=== PATIENT | male | born 1995 | race Caucasian/White ===

== ENCOUNTER 2018-11-16 16:09 | Emergency (ER) | payer OTHER ==
[~2018-11-16] VITALS: Ht 177.8 cm; Wt 90.7 kg
[2018-11-16 16:09] VITALS: BP 144/83
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
== END 2018-11-16 16:30 | disposition home or self-care (01) ==
LOC: ER 16:09
DX: M54.6 Pain in thoracic spine (principal); R53.1 Weakness; R53.83 Other fatigue; Z91.018 Allergy to other foods; W10.8XXA Fall (on) (from) other stairs and steps, initial encounter; Y93.89 Activity, other specified; Y92.89 Other specified places as the place of occurrence of the external cause; Y99.8 Other external cause status
CPT/HCPCS: 82947; 99283

== ENCOUNTER 2018-11-30 19:23 | Inpatient (IN) | payer OTHER ==
[~2018-11-30] VITALS: Ht 182.9 cm; Wt 86.3 kg
[2018-11-30] MEDS ORDERED: IV RINGERS SOLUTION,LACTATED 1,000 ML IV SCH (19:33)
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
[2018-11-30] MEDS ORDERED: MVI, ADULT NO.4 WITH VIT K 10 ML, FOLIC ACID SYRINGE for ER 1 MG, THIAMINE INJ 100 MG i... IV ONE ×4 (20:00)
[2018-11-30 20:48] LABS: BASO % 1 % (0-3); EOS # 0.1 x10^3/uL (0.0-0.7); EOS % 2 % (0-3); HEMATOCRIT 45.8 % (39.0-53.0); LYMPH # 2.9 x10^3/uL (1.0-4.8); LYMPH % 46 % (24-48); MEAN CORPUSCULAR HEMOGLOBIN 31 pg (25-35); MEAN CORPUSCULAR HGB CONC 35 g/dL (31-37); MEAN CORPUSCULAR VOLUME 90 fL (79-100); MONO # 0.8 x10^3/uL (0.0-1.1); MONO % 13 % (0-9); NEUT # 2.4 x10^3uL (1.8-7.7); NEUT % 39 % (31-73); PLATELET COUNT 190 x10^3/uL (140-400); RED BLOOD COUNT 5.11 x10^6/uL (4.30-5.70); RED CELL DISTRIBUTION WIDTH 12.9 % (11.5-14.5); WHITE BLOOD COUNT 6.2 x10^3/uL (4.0-11.0)
[2018-11-30 20:51] LABS: ETHANOL < 10 mg/dL (0-10); SALIC 1.8 mg/dL (2.8-20.0)
[2018-11-30 20:53] LABS: ACETAMIN < 2.0 mcg/mL (10-30)
[2018-11-30 21:00] LABS: ALBUMIN 4.2 g/dL (3.4-5.0); CALCIUM 9.6 mg/dL (8.5-10.1); CREATININE 0.9 mg/dL (0.7-1.3); DIRECT BILIRUBIN 0.2 mg/dL (0.0-0.2); GFR 106.5; MAGNESIUM 2.1 mg/dL (1.8-2.4); TOTAL BILIRUBIN 0.8 mg/dL (0.2-1.0); TOTAL PROTEIN 7.1 g/dL (6.4-8.2)
[2018-11-30 21:23] LABS: BARBITURATES NEG (NEG); BENZODIAZEPINES POS (NEG); CANNABINOIDS NEG (NEG); COCAINE NEG (NEG); METHADONE NEG (NEG); OPIATES POS (NEG); PHENCYCLIDINE NEG (NEG)
[2018-11-30] MEDS ORDERED: SODIUM BICARB ADULT 8.4% 50 MEQ/50 ML DISP.SYRIN. IV ONE (21:30)
[2018-11-30 21:33] LABS: BGAS PH 7.46 (7.35-7.46)
[2018-11-30 21:34] LABS: AMORPHOUS SEDIMENT,UR PRESENT /HPF; BACTERIA,URINE 0 /HPF (0-FEW); BILIRUBIN,URINE NEG (NEG); CLARITY,URINE HAZY; COLOR,URINE YELLOW; GLUCOSE,URINE NEG (NEG); NITRITE,URINE NEG (NEG); RBC,URINE 0 /HPF (0-2); SQUAMOUS EPITHELIAL CELL,UR OCC /LPF; UROBILINOGEN,URINE 1 mg/dL (0.2 mg/dL); WBC,URINE OCC /HPF (0-4)
[2018-11-30 21:37] LABS: AMPHETAMINE/METHAMPHETAMINE POS (NEG)
[2018-11-30] MEDS ORDERED: ONDANSETRON PF 4 MG/2 ML VIAL. IV PRN (21:45)
[2018-11-30 21:52] LABS: SEDIMENTATION RATE 6 (0-15)
--- NOTE | 2018-11-30 22:25 | RAD ---
Examination: CT HEAD AND CERVICAL SPINE WO History: Mental status change, unresponsive Comparison/Correlation: None Findings: Axial images of the head and cervical spine were obtained without contrast. Sagittal and coronal reformatted images of the cervical spine were provided. Motion limits evaluation of the cervical spine. Patient reportedly was not able to follow commands at the time of imaging. Ventricles are normal size. No intracranial hemorrhage, midline shift, or mass effect. Globes and optic nerves are unremarkable. Motion limits evaluation of the upper cervical spine. Alignment is normal. Neural foramina are patent. Soft tissues of the neck are unremarkable. Impression: No intracranial hemorrhage. Cervical spine alignment is normal. Fracture is not seen but motion limits evaluation. Repeat imaging of the cervical spine should be considered for more definitive assessment when the patient is able. PQRS Compliance Statement: One or more of the following individualized dose reduction techniques were utilized for this examination: 1. Automated exposure control 2. Adjustment of the mA and/or kV according to patient size 3. Use of iterative reconstruction technique Electronically signed by: Nazario Carrillo MD (11/30/2018 10:23 PM) [facility]
[2018-11-30 23:35] VITALS: BP 134/67
[2018-12-01] VITALS (12 sets, daily range): BP systolic 92–137; BP diastolic 36–68
[2018-12-01] MEDS ORDERED: HYDROCOD PO (00:35)
[2018-12-01] MEDS ORDERED: TRAZ-120 PO (00:35)
[2018-12-01] MEDS ORDERED: ACETAM PO (00:35)
[2018-12-01] MEDS ORDERED: DIVA-53 PO (00:35)
[2018-12-01] MEDS ORDERED: RISP0.253 PO (00:35)
[2018-12-01] MEDS ORDERED: FLUT16SP21 NS (00:35)
[2018-12-01] MEDS ORDERED: CETI10TA16 PO (00:35)
[2018-12-01 01:00] LABS: BASO % 1 % (0-3); EOS # 0.2 x10^3/uL (0.0-0.7); EOS % 4 % (0-3); HEMATOCRIT 44.2 % (39.0-53.0); HEMOGLOBIN 15.3 g/dL (13.0-17.5); LYMPH # 2.8 x10^3/uL (1.0-4.8); LYMPH % 51 % (24-48); MEAN CORPUSCULAR HEMOGLOBIN 31 pg (25-35); MEAN CORPUSCULAR HGB CONC 35 g/dL (31-37); MEAN CORPUSCULAR VOLUME 90 fL (79-100); MONO # 0.7 x10^3/uL (0.0-1.1); MONO % 12 % (0-9); NEUT # 1.8 x10^3uL (1.8-7.7); NEUT % 32 % (31-73); PLATELET COUNT 177 x10^3/uL (140-400); RED BLOOD COUNT 4.93 x10^6/uL (4.30-5.70); RED CELL DISTRIBUTION WIDTH 12.9 % (11.5-14.5); WHITE BLOOD COUNT 5.5 x10^3/uL (4.0-11.0)
[2018-12-01 01:08] LABS: CALCIUM 8.9 mg/dL (8.5-10.1); CREATININE 0.8 mg/dL (0.7-1.3)
[2018-12-01 01:24] LABS: SALIC 1.1 mg/dL (2.8-20.0)
[2018-12-01 01:25] LABS: ACETAMIN < 2.0 mcg/mL (10-30)
[2018-12-01] MEDS: IV RINGERS SOLUTION,LACTATED 1,000 ML IV SCH ×4 (01:55→21:04)
[2018-12-01] MEDS ORDERED: IPRATRPIUM/ALBUTEROL 0.5/2.5MG 3 ML NEBU. ONE (05:21)
--- NOTE | 2018-12-01 05:42 | EKG ---
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
--- NOTE | 2018-12-01 07:57 | RAD ---
Study: PORTABLE CHEST 1V Indication: Lethargic. Mental status change. Comparison: None. Findings: The cardiomediastinal silhouette is within normal limits for size. Unremarkable central vascular structures. No pneumothorax, lobar infiltrate or pleural effusion. No free air seen under the diaphragm. Impression: Unremarkable radiographic appearance of the chest. Electronically signed by: ALL ALBERTO MD (12/01/2018 7:53 AM) [facility]
[2018-12-01] MEDS ORDERED: IPRATRPIUM/ALBUTEROL 0.5/2.5MG 3 ML NEBU. NEB SCH (08:00)
[2018-12-01] MEDS ORDERED: IPRATRPIUM/ALBUTEROL 0.5/2.5MG 3 ML NEBU. NEB PRN (16:00)
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
--- NOTE | 2018-12-01 23:58 | PN ---
DATE: 12/01/2018 SUBJECTIVE: The patient was admitted yesterday with altered mental status. He basically continued to be markedly sedated. He does open his eyes and answer questions, but he drifts back to sleep quickly. He is aware that he is in the hospital, but he is disoriented to time. PHYSICAL EXAMINATION: GENERAL: When I examined him this afternoon, he was resting flat, comfortably in bed, in no apparent respiratory distress. No pallor, jaundice, cyanosis or thyromegaly. No jugular venous distention. No limb edema. VITAL SIGNS: Her heart rate was 72, blood pressure was 129/62, temperature was 97.2, respiratory rate was 18 and oxygen saturation was 97% on 2 liters of oxygen. HEAD, EYES, EARS, NOSE AND THROAT: Showed normocephalic, atraumatic. NECK: Supple. CARDIAC: Normal first and second heart sounds. No gallop or murmur. CHEST: Clear to auscultation. No crepitation or rhonchi. ABDOMEN: Distended, soft, nontender. No guarding or rigidity. No organomegaly. All hernial orifice intact. Bowel sounds normal. NEUROLOGIC: He was awake, alert, responding appropriately. All cranial nerves are intact. He moves extremities without difficulty, although he continued to be extremely sedated and drifts back to sleep quickly. His intake was 2000, output was 950. LABORATORY DATA: Her lab work this morning showed that his serum sodium 140, potassium 4, chloride 104, bicarbonate 30, anion gap of 6, BUN 11, creatinine 0.8, estimated GFR was 122 mL per minute. His glucose was 88 and calcium was 8.9. ASSESSMENT AND PLAN: 1. Altered mental status. The patient is positive for opiates, benzodiazepine, and he might have overdosed on his psych medication: He is known to have bipolar disorder, schizoaffective disorder and anxiety, polysubstance abuse, positive for methamphetamine, benzodiazepine, tobacco use and history Chiari malformation. We will continue with IV fluid. We will repeat all his lab work tomorrow and decide the further management according to his response. WANG ROB MD DR: MARILYN/henry JOB#: [id number] / [id number]
[2018-12-02 00:47] VITALS: BP 104/60
--- NOTE | 2018-12-02 01:12 | CONS ---
DATE OF CONSULTATION: 12/01/2018 NEUROLOGY CONSULTATION REFERRING PHYSICIAN: Dr. Bey. REASON FOR CONSULTATION: Acute mental status changes. HISTORY OF PRESENT ILLNESS: This is a 23-year-old right-handed male who was admitted to Emergency Room last night after he was found wandering down about 7 by police. The patient was found to be in sedated state. The patient responded to questions, but he takes time to answer the question. Apparently, the patient took multiple medications for his underlying psychiatric problems including bipolar disorder and schizoaffective disorders. He denies suicidal ideations or attempts. The patient admitted to being under extreme stress, which caused a flare up of his several underlying psychiatric disorders. In the Emergency Room, head CT scan revealed no evidence of acute intracranial process. He denies any recent head injuries or fall. Urinary drug screen was positive for opiates, benzodiazepines and amphetamine/methamphetamine. The patient stated he took Adderall recently. Apparently, his vital signs were stable. He denies headaches, visual disturbances, nausea, vomiting, chest pain, shortness of breath or palpitation. PAST MEDICAL HISTORY: Significant for schizoaffective disorders, bipolar disorders and Chiari malformation. PAST SURGICAL HISTORY: Positive for surgery for right middle and fifth fingers. FAMILY HISTORY: His father is alive at the age of 40 and has seizure disorder. His mother is in mid 40s and had multiple medical problems. All his siblings are healthy. SOCIAL HISTORY: The patient smokes 1 pack daily. He denies alcohol drinking or illicit drug use. REVIEW OF SYSTEMS: A 10-point review of system was performed as mentioned in history of present illness, the patient is quite sedated and answering questions slowly. PHYSICAL EXAMINATION: GENERAL: Well-developed, well-nourished male, not in acute distress. VITAL SIGNS: Blood pressure 170/59, respiratory rate 12, pulse is 68 and regular, temperature 97.6, oxygen saturation 97% on room air. HEENT: Normocephalic, atraumatic, otherwise unremarkable. NECK: Supple. Negative for carotid bruit, lymphadenopathy or thyromegaly. LUNGS: Clear to A and P. CARDIOVASCULAR: Regular rhythm, normal S1, S2. There is no S3, S4 or murmurs. ABDOMEN: Soft. Bowel sounds positive. EXTREMITIES: Negative for cyanosis, clubbing or edema. NEUROLOGICAL EXAM: Mental Status: The patient is alert and oriented to place and time. Speech is slow. There is no language dysfunction. The patient recalls 1/3 immediately and 2/3 after 1 minute. The speech is soft. There is no dysarthria. There is no obvious language dysfunction. Judgment and abstract thinking is fair. The patient denies hallucination or delusion. CRANIAL NERVES: Visual giang are full. The pupils are reactive to light and accommodation. The extraocular movements are intact. There is no nystagmus. There is no facial motor or sensory deficit. Hearing is intact bilaterally. The palate is elevated symmetrically. Sternocleidomastoid muscles are powerful bilaterally. The patient shrugs his shoulders symmetrically and protrudes her tongue in the midline without fasciculation or atrophy. MOTOR EXAMINATION: No focal muscle bulk was seen. The tone is normal. The strength is 4/5 throughout. SENSORY EXAMINATION: Revealed normal pinprick, light touch, vibratory and position senses. Deep tendon reflexes were asymmetric and hypoactive with absent Achilles responses. GAIT: The stance is steady. Romberg sign is negative. DIAGNOSTIC DATA: Nonenhanced head CT scan revealed no evidence of acute intracranial process and cervical CT scan was not completed, but showed no fracture and chest x-ray revealed no evidence of acute cardiopulmonary process. LABORATORY DATA: CBC, white blood cells 5500, hemoglobin 15.3, hematocrit 44.2, platelet count 177,000. Chemistry revealed sodium of 140, potassium 4, chloride 104, CO2 of 30, BUN 11, creatinine 0.8 and glucose 88, and calcium 8.9. Troponin level is normal. TSH is normal. Urinalysis is negative for urinary tract infections, otherwise unremarkable. PT is 11, INR 1.1, and PTT is 28. IMPRESSION: 1. Acute encephalopathy, probably toxic type, most likely due to polysubstance abuse and opiates. 2. History of schizoaffective disorders, depression, and anxiety. 3. History of polysubstance abuse. RECOMMENDATIONS: 1. Continue with current management initiated by Dr. Bey. 2. Avoid sedation as possible. 3. Physical therapy evaluation. M Tyra LR MD DR: JOSSELINE/henry JOB#: [id number] / [id number]
[2018-12-02] MEDS: IV RINGERS SOLUTION,LACTATED 1,000 ML IV SCH ×3 (05:32→14:23)
[2018-12-02 05:39] VITALS: BP 106/62
[2018-12-02 06:40] LABS: ALBUMIN 3.5 g/dL (3.4-5.0); ALBUMIN/GLOBULIN RATIO 1.2 (1.0-1.7); GFR 94.3; POTASSIUM 4.1 mmol/L (3.5-5.1); TOTAL BILIRUBIN 0.8 mg/dL (0.2-1.0); TOTAL PROTEIN 6.5 g/dL (6.4-8.2)
[2018-12-02 10:45] VITALS: BP 103/62
[2018-12-02] MEDS ORDERED: FLU VAX QS 2019-20 (36MOS+)/PF 0.5 ML SYRINGE. VAX IM ONE (11:30)
[2018-12-02 15:24] VITALS: BP 123/62
[2018-12-02] MEDS ORDERED: RISP1TAB3 PO (23:11)
[2018-12-02] MEDS ORDERED: DIVA500T2 PO (23:11)
--- NOTE | 2018-12-03 01:00 | PN ---
DATE: 12/02/2018 SUBJECTIVE: The patient is resting slightly propped up in bed, in no apparent distress. He is more awake, alert, able to walk, although very unsteady and feeling dizzy. He sat in the chair and managed to get himself into the bed, continued to complain of being weak. He managed to eat his breakfast. Clinically, he seemed to be stable. OBJECTIVE: VITAL SIGNS: His heart rate was 62, blood pressure 103/62, temperature was 98.1, respiratory rate 20, and oxygen saturation was 98%. The rest of clinical examination is stable. His intake was 2000, output was 950. LABORATORY DATA: His BUN is 13, creatinine 1. PLAN: The plan is to continue with IV fluids. We did consult Dr. Marie to see him and once he is stable hemodynamically, he can be discharged. WANG ROB MD DR: MARILYN/henry JOB#: [id number] / [id number]
--- NOTE | 2018-12-03 02:36 | PN ---
DATE: REFERRING PHYSICIAN: Dr. Bey. SUBJECTIVE: The patient complains of generalized weakness and tiredness. He has been drowsy since admission. He denies chest pain, shortness of breath, palpitations, headaches, dysarthria or dysphagia. The patient continues to have intermittent confusion and forgetfulness. OBJECTIVE: GENERAL: Well-developed, well-nourished male, not in acute distress. VITAL SIGNS: Blood pressure 123/62, respiratory rate 20, pulse is 69, temperature 98.1, oxygen saturation 99% on room air. HEENT: Normocephalic, atraumatic, otherwise unremarkable. NECK: Supple. Negative for carotid bruit, lymphadenopathy or thyromegaly. LUNGS: Clear to A and P. CARDIOVASCULAR: Regular rhythm, normal S1, S2. There is no S3, S4 or murmur. ABDOMEN: Soft. Bowel sounds positive. EXTREMITIES: Negative for cyanosis, clubbing or edema. NEUROLOGICAL EXAM: Mental status: The patient is alert and oriented to month, but he is not oriented to day or year. He does remember the name of the president. Speech is slow, but not dysarthric. He follows 1-step commands. He denies hallucination or delusion. He has short-term memory recalls 1/3 immediately and 0/3 after 1 and 3 minutes. Judgment and abstract thinking are fair. Cranial nerves: Visual giang are full. The pupils are reactive to light and accommodation. The extraocular movements are intact, otherwise unremarkable. Motor examination: No focal muscle bulk was seen. The tone is normal. The strength is 4/5 throughout. Sensory examination revealed normal pinprick, light touch, vibratory and position senses. Deep tendon reflexes were symmetric and hypoactive with absent Achilles responses. Gait: The stance is steady. Romberg sign is negative. IMPRESSION: 1. Acute encephalopathy, probably toxic type due to polysubstance abuse and opiates. 2. History of multiple psychiatric problems include depressions, anxiety and schizoaffective disorders. 3. History of polysubstance abuse. RECOMMENDATIONS: 1. Continue with current observation. 2. Avoid sedation as possible. 3. Follow up in case of discharge. The patient can follow up with Dr. Lr after 1 week from discharge for further evaluation. M Tyra LR MD DR: JOSSELINE/henry JOB#: [id number] / [id number]
== END 2018-12-02 18:45 | disposition left against medical advice (07) | DRG 917 ==
LOC: ER 19:23 → EEVIPCON 21:00 → ICU 21:00 → 1 SOUTH 12-01 15:42
PROVIDERS: ADMIT Internal Medicine; ATTEND Internal Medicine
DX: T40.601A Poisoning by unspecified narcotics, accidental (unintentional), initial encounter (principal); G92 Toxic encephalopathy; F17.210 Nicotine dependence, cigarettes, uncomplicated; F25.9 Schizoaffective disorder, unspecified; Z53.21 Procedure and treatment not carried out due to patient leaving prior to being seen by health care provider; F31.9 Bipolar disorder, unspecified; F41.9 Anxiety disorder, unspecified; Z82.0 Family history of epilepsy and other diseases of the nervous system; Z91.83 Wandering in diseases classified elsewhere; Y92.89 Other specified places as the place of occurrence of the external cause
CPT/HCPCS: 36415; 51702; 70450; 71045; 72125; 80048; 80053; 80076; 80307; 80329; 81001; 82550; 82803; 83735; 83880; 84443; 84484; 85025; 85610; 85651; 85730; 87641; 90471; 90686; 93005; 94640; 96365; 96366; 96375; G0480; J7120; J7620; 82003; 97116; 99285-25

== ENCOUNTER 2018-12-02 21:11 | Emergency (ER) | payer OTHER ==
[~2018-12-02] VITALS: Ht 185.4 cm; Wt 92.5 kg
[~2018-12-02 21:11] MED LIST: ACETAM PO; CETI10TA16 PO; DIVA-53 PO; FLUT16SP21 NS; HYDROCOD PO; RISP0.253 PO; TRAZ-120 PO
[2018-12-02 21:15] VITALS: BP 123/48
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
--- NOTE | 2018-12-02 21:41 | EKG ---
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
[2018-12-02] MEDS ORDERED: MVI, ADULT NO.4 WITH VIT K 10 ML, FOLIC ACID SYRINGE for ER 1 MG, THIAMINE INJ 100 MG i... IV ONE ×4 (22:00)
[2018-12-02] MEDS ORDERED: IV RINGERS SOLUTION,LACTATED 1,000 ML IV SCH (22:00)
[2018-12-02 22:15] LABS: BASO % 0 % (0-3); EOS # 0.2 x10^3/uL (0.0-0.7); EOS % 4 % (0-3); HEMATOCRIT 41.4 % (39.0-53.0); HEMOGLOBIN 14.5 g/dL (13.0-17.5); LYMPH # 2.1 x10^3/uL (1.0-4.8); LYMPH % 36 % (24-48); MEAN CORPUSCULAR HEMOGLOBIN 31 pg (25-35); MEAN CORPUSCULAR HGB CONC 35 g/dL (31-37); MEAN CORPUSCULAR VOLUME 89 fL (79-100); MONO # 0.7 x10^3/uL (0.0-1.1); MONO % 12 % (0-9); NEUT # 2.7 x10^3uL (1.8-7.7); NEUT % 47 % (31-73); PLATELET COUNT 174 x10^3/uL (140-400); RED BLOOD COUNT 4.64 x10^6/uL (4.30-5.70); RED CELL DISTRIBUTION WIDTH 12.3 % (11.5-14.5); WHITE BLOOD COUNT 5.8 x10^3/uL (4.0-11.0)
[2018-12-02] MEDS ORDERED: OLANZapine 2.5 MG TABLET PO ONE (22:15)
[2018-12-02 22:20] LABS: BARBITURATES NEG (NEG); BENZODIAZEPINES NEG (NEG); CANNABINOIDS NEG (NEG); COCAINE NEG (NEG); METHADONE NEG (NEG); OPIATES NEG (NEG); PHENCYCLIDINE NEG (NEG)
[2018-12-02 22:21] LABS: AMPHETAMINE/METHAMPHETAMINE NEG (NEG)
[2018-12-02 22:32] LABS: ALBUMIN 3.5 g/dL (3.4-5.0); CALCIUM 8.8 mg/dL (8.5-10.1); CREATININE 0.9 mg/dL (0.7-1.3); DIRECT BILIRUBIN 0.1 mg/dL (0.0-0.2); GFR 106.5; POTASSIUM 3.6 mmol/L (3.5-5.1); TOTAL BILIRUBIN 0.3 mg/dL (0.2-1.0); TOTAL PROTEIN 6.4 g/dL (6.4-8.2)
[2018-12-02 22:35] LABS: ETHANOL < 10 mg/dL (0-10); SALIC 2.1 mg/dL (2.8-20.0)
[2018-12-02 22:37] LABS: ACETAMIN < 2 mcg/mL (10-30); VAL ACID < 3 mcg/mL (50-100)
[2018-12-02 22:42] LABS: COLOR,URINE YELLOW
[2018-12-02 22:43] LABS: AMORPHOUS SEDIMENT,UR PRESENT /HPF; BACTERIA,URINE 0 /HPF (0-FEW); BILIRUBIN,URINE NEG (NEG); CLARITY,URINE CLEAR; GLUCOSE,URINE NEG (NEG); NITRITE,URINE NEG (NEG); SQUAMOUS EPITHELIAL CELL,UR FEW /LPF; UROBILINOGEN,URINE 0.2 mg/dL (0.2 mg/dL)
[2018-12-02] MEDS ORDERED: DIVA500T2 PO (23:11)
[2018-12-02] MEDS ORDERED: RISP1TAB3 PO (23:11)
[2018-12-03] MEDS ORDERED: VALPROATE SODIUM 500 MG in IV NORMAL SALINE 50ML 50 ML IV SCH (09:00)
== END 2018-12-02 23:38 | disposition home or self-care (01) ==
LOC: ER 21:11
DX: F31.9 Bipolar disorder, unspecified (principal); F20.9 Schizophrenia, unspecified; F41.9 Anxiety disorder, unspecified; F19.10 Other psychoactive substance abuse, uncomplicated; F43.10 Post-traumatic stress disorder, unspecified; F17.210 Nicotine dependence, cigarettes, uncomplicated; F14.10 Cocaine abuse, uncomplicated; F12.10 Cannabis abuse, uncomplicated; Z91.018 Allergy to other foods
CPT/HCPCS: 36415; 80048; 80076; 80164; 80307; 80329; 81001; 83735; 85025; 85610; 85730; 93005; 96365; 96366; 96368; 99285; G0480; J3490; J7120; 82003

== ENCOUNTER 2018-12-05 07:10 | Inpatient (IN) | payer OTHER ==
[~2018-12-05] VITALS: Ht 185.4 cm; Wt 85.0 kg
[2018-12-05] VITALS (12 sets, daily range): BP systolic 100–135; BP diastolic 41–58
[~2018-12-05 07:10] MED LIST changes: +DIVA500T2 PO; +RISP1TAB3 PO
[2018-12-05] MEDS ORDERED: IV NORMAL SALINE 1,000ML 1,000 ML IV SCH (07:28)
[2018-12-05] MEDS ORDERED: NALOXONE 2 MG/2 ML DISP.SYRIN. IV ONE (07:30)
--- NOTE | 2018-12-05 07:37 | PHYS DOC ---
Past History Past Medical History: Anxiety, Bipolar, Schizophrenia, Other Additional Past Medical Histor: PTSD, Chiari Malformation; ADD Past Surgical History: Other Additional Past Surgical Histo: tendon repair on the rt hand--3rd, 4th and 5th fingers Smoking: Cigarettes Alcohol Use: Occasionally Drug Use: Amphetamine, Benzodiazepine, Cocaine, Marijuana, Methamphetamine, Other Adult General Chief Complaint Chief Complaint: OVERDOSE HPI HPI The patient is a 23-year-old male, who presents to the emergency department for evaluation for lethargy and altered mental status after a possible suicide attempt. The patient has been seen in this emergency department several times already this month, prior notes have been reviewed. He was hospitalized here last week for sedation, possibly related to polysubstance abuse or an overdose. This morning the patient was brought to the emergency department by his girlfriend, who appears much older than him, and she brought with her to empty medication bottles, for risperidone and Depakote, both which were filled yesterday according to the date on the bottle, along with what appears to be a suicide note. The patient is not verbally responsive, but is exhibiting some purposeful movements, he'll protect his face from his arm drop above his face, and does have a good gag reflex. He does assist in the opening of his mouth. He is not able to provide any meaningful history. The patient does not exhibit any signs of trauma. Medication bottles that were filled yesterday indicate that he had 30 rispe ridone 1 mg tablets filled, as well as #60 500 mg delayed release Depakote tablets filled yesterday, and both bottles are empty. Review of Systems Review of Systems Unable to obtain review of systems secondary to unresponsiveness. Current Medications Current Medications Current Medications Medications (Trade) Dose Ordered Sig/Jimmie Start Time Stop Time Status Last Admin Dose Admin Naloxone HCl (Narcan) 2 mg 1X ONCE 12/05/18 07:30 12/05/18 07:32 DC Sodium Chloride 1,000 ml @ 1,000 mls/hr Q1H 12/05/18 07:28 12/05/18 08:27 Allergies Allergies Allergies Coded Allergies Type Severity Reaction Last Updated Verified kelsey Allergy Unknown 12/03/18 Yes Uncoded Allergies Type Severity Reaction Last Updated Verified metandye Allergy Unknown 12/01/18 Physical Exam Physical Exam PHYSICAL EXAM: CONSTITUTIONAL: Well developed, well nourished HEAD: normocephalic, atraumatic EENT: PERRL, EOMI. pupils are 3 mm bilaterally and reactive, Conjunctivae normal color, sclerae non-icteric; moist mucous membranes. Gag reflex is present. NECK: Supple, non-tender; no meningismus. LUNGS: Lungs CTA, breathing even and unlabored. Normal air movement. HEART: Regular rate and rhythm, no murmur CHEST: No deformity; non-tender ABDOMEN: The abdomen is soft, and non-tender, no masses or bruits. EXTREM: Normal ROM; no deformity, no calf tenderness. Normal pulses palpable in all extremities. There is no pedal edema. SKIN: No rash; no diaphoresis NEURO: Patient is unresponsive, does exhibit some purposeful movements. Will localize pain to a sternal rub, and open eyes to noxious stimulus. GCS 8. BACK: No CVA TTP. Current Patient Data Lab Results Laboratory Tests Test 12/05/18 07:28 12/05/18 07:37 White Blood Count 3.5 x10^3/uL Red Blood Count 5.08 x10^6/uL Hemoglobin 16.0 g/dL Hematocrit 45.5 % Mean Corpuscular Volume 90 fL Mean Corpuscular Hemoglobin 32 pg Mean Corpuscular Hemoglobin Concent 35 g/dL Red Cell Distribution Width 12.8 % Platelet Count 178 x10^3/uL Neutrophils (%) (Auto) 35 % Lymphocytes (%) (Auto) 57 % Monocytes (%) (Auto) 5 % Eosinophils (%) (Auto) 2 % Basophils (%) (Auto) 1 % Neutrophils # (Auto) 1.2 x10^3uL Lymphocytes # (Auto) 2.0 x10^3/uL Monocytes # (Auto) 0.2 x10^3/uL Eosinophils # (Auto) 0.1 x10^3/uL Basophils # (Auto) 0.0 x10^3/uL Sodium Level 144 mmol/L Potassium Level 3.9 mmol/L Chloride Level 106 mmol/L Carbon Dioxide Level 25 mmol/L Anion Gap 13 Blood Urea Nitrogen 11 mg/dL Creatinine 1.2 mg/dL Estimated GFR (Cockcroft-Gault) 76.4 BUN/Creatinine Ratio 9 Glucose Level 124 mg/dL Calcium Level 8.5 mg/dL Magnesium Level 2.0 mg/dL Total Bilirubin 0.1 mg/dL Aspartate Amino Transf (AST/SGOT) 8 U/L Alanine Aminotransferase (ALT/SGPT) 14 U/L Alkaline Phosphatase 54 U/L Total Protein 7.3 g/dL Albumin 3.7 g/dL Albumin/Globulin Ratio 1.0 Salicylates Level 1.9 mg/dL Salicylate Last Dose Date Unknown Salicylate Last Dose Time Unknown Acetaminophen Level < 2.0 mcg/mL Acetaminophen Last Dose Date Unknown Acetaminophen Last Dose Time Unknown Valproic Acid (Depakene) Level 511 mcg/mL Valproic Acid Last Dose Date 12/05/18 Valproic Acid Last Dose Time 0728 Ethyl Alcohol Level < 10 mg/dL Urine Collection Type Unknown Urine Color Yellow Urine Clarity Clear Urine pH 6.5 Urine Specific [place] 1.020 Urine Protein Neg Urine Glucose (UA) Neg mg/dL Urine Ketones (Stick) Neg mg/dL Urine Blood Neg Urine Nitrite Neg Urine Bilirubin Neg Urine Urobilinogen Dipstick 0.2 mg/dL Urine Leukocyte Esterase Neg Urine RBC Rare /HPF Urine WBC Occ /HPF Urine Squamous Epithelial Cells Occ /LPF Urine Bacteria 0 /HPF Urine Mucus Slight /LPF Urine Opiates Screen Neg Urine Methadone Screen Neg Urine Barbiturates Neg Urine Phencyclidine Screen Neg Urine Amphetamine/Methamphetamine Pos Urine Benzodiazepines Screen Neg Urine Cocaine Screen Neg Urine Cannabinoids Screen Neg Urine Ethyl Alcohol Neg Current Medications Medications (Trade) Dose Ordered Sig/Jimmie Route PRN Reason Start Time Stop Time Status Last Admin Dose Admin Naloxone HCl (Narcan) 2 mg 1X ONCE IV 12/05/18 07:30 12/05/18 07:32 DC 12/05/18 07:43 Sodium Chloride 1,000 ml @ 1,000 mls/hr Q1H IV 12/05/18 07:28 12/05/18 08:27 DC 12/05/18 07:43 EKG EKG Normal sinus rhythm with a normal rate, normal axis, normal intervals, there are no acute ischemic ST/T changes.[] Radiology/Procedures Radiology/Procedures [] Course & Med Decision Making Course & Med Decision Making Pertinent Labs and Imaging studies reviewed. (See chart for details) []CRITICAL CARE TIME: 60 Minutes, excluding any procedures and care of other patients. 8:35 AM: The patient's condition remains hemodynamically stable. He does exhibit purposeful movements to stimulus. His Depakote level is noted to be markedly elevated. Poison center recommendations were reviewed, and we spoke to poison center twice, verifying that no other intervention other than supportive care and monitoring, including QTc monitoring, was indicated. I discussed the case with the hospitalist who will admit the patient to the ICU for further monitoring. Dialysis is not indicated given the relatively high protein binding at the current serum levels, and whole bowel irrigation was considered but not recommended by poison center. Dragon Disclaimer Dragon Disclaimer This electronic medical record was generated, in whole or in part, using a voice recognition dictation system. Departure Departure: Impression: Primary Impression: Overdose Additional Impression: Suicide attempt Disposition: 09 ADMITTED INPATIENT Admitting Physician: Luciana Bey Condition: CRITICAL Referrals: PCP,NO (PCP) Problem Qualifiers SREE SANDY MD Dec 05, 2018 07:37
[2018-12-05 07:43] LABS: BASO % 1 % (0-3); EOS # 0.1 x10^3/uL (0.0-0.7); EOS % 2 % (0-3); HEMATOCRIT 45.5 % (39.0-53.0); LYMPH % 57 % (24-48); MEAN CORPUSCULAR HEMOGLOBIN 32 pg (25-35); MEAN CORPUSCULAR HGB CONC 35 g/dL (31-37); MEAN CORPUSCULAR VOLUME 90 fL (79-100); MONO # 0.2 x10^3/uL (0.0-1.1); MONO % 5 % (0-9); NEUT # 1.2 x10^3uL (1.8-7.7); NEUT % 35 % (31-73); PLATELET COUNT 178 x10^3/uL (140-400); RED BLOOD COUNT 5.08 x10^6/uL (4.30-5.70); RED CELL DISTRIBUTION WIDTH 12.8 % (11.5-14.5); WHITE BLOOD COUNT 3.5 x10^3/uL (4.0-11.0)
[2018-12-05 07:56] LABS: SALIC 1.9 mg/dL (2.8-20.0)
[2018-12-05 07:57] LABS: ACETAMIN < 2.0 mcg/mL (10-30); ETHANOL < 10 mg/dL (0-10)
[2018-12-05 07:59] LABS: AMPHETAMINE/METHAMPHETAMINE POS (NEG); BARBITURATES NEG (NEG); BENZODIAZEPINES NEG (NEG); CANNABINOIDS NEG (NEG); COCAINE NEG (NEG); METHADONE NEG (NEG); OPIATES NEG (NEG); PHENCYCLIDINE NEG (NEG)
[2018-12-05 08:04] LABS: BILIRUBIN,URINE NEG (NEG); CLARITY,URINE CLEAR; COLOR,URINE YELLOW; GLUCOSE,URINE NEG (NEG)
[2018-12-05 08:05] LABS: BACTERIA,URINE 0 /HPF (0-FEW); NITRITE,URINE NEG (NEG); RBC,URINE RARE /HPF (0-2); SQUAMOUS EPITHELIAL CELL,UR OCC /LPF; UROBILINOGEN,URINE 0.2 mg/dL (0.2 mg/dL); WBC,URINE OCC /HPF (0-4)
[2018-12-05 08:06] LABS: ALBUMIN 3.7 g/dL (3.4-5.0); ALK PHOS 54 U/L (46-116); ALT (SGPT) 14 U/L (16-63); ANION GAP 13 (6-14); AST (SGOT) 8 U/L (15-37); BLOOD UREA NITROGEN 11 mg/dL (8-26); BUN/CREATININE RATIO 9 (6-20); CALCIUM 8.5 mg/dL (8.5-10.1); CARBON DIOXIDE 25 mmol/L (21-32); CHLORIDE 106 mmol/L (98-107); CREATININE 1.2 mg/dL (0.7-1.3); GFR 76.4; GLUCOSE 124 mg/dL (70-99); POTASSIUM 3.9 mmol/L (3.5-5.1); SODIUM 144 mmol/L (136-145); TOTAL BILIRUBIN 0.1 mg/dL (0.2-1.0); TOTAL PROTEIN 7.3 g/dL (6.4-8.2)
[2018-12-05 08:30] LABS: VAL ACID 511 mcg/mL (50-100)
--- NOTE | 2018-12-05 09:29 | EKG ---
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
--- NOTE | 2018-12-05 09:33 | EKG ---
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
[2018-12-05] MEDS: IV NORMAL SALINE 1,000ML 1,000 ML IV SCH ×2 (12:14→17:11)
[2018-12-05 12:51] LABS: VAL ACID 452 mcg/mL (50-100)
[2018-12-05] MEDS: LACTULOSE 20 GM/30 ML SOLUTION. PO SCH ×2 (17:11→20:14)
[2018-12-05 18:06] LABS: VAL ACID 303 mcg/mL (50-100)
--- NOTE | 2018-12-05 19:52 | HP ---
ADMIT DATE: 12/05/2018 HISTORY OF PRESENT ILLNESS: The patient is a 23-year-old male patient, who presented to Emergency Department for evaluation of lethargy and altered mental status ____ suicide attempt. He apparently was seen in this Emergency Department several times already this month, prior notes have been reviewed. He was hospitalized here last week with sedation, possibly related to polysubstance abuse and overdose and this morning, the patient was brought to the Emergency Department by his girlfriend who appears much older than him. He brought with his empty medication bottles for risperidone and Depakote, both of which were filled yesterday according to the date on the bottle along with what appears to be a suicide note. When he arrived to the Emergency Room, he was not verbally responsive, but exhibiting some purposeful movement. He protects his face from his arm glove above his face. He does have a good gag reflex. He does assist in opening his mouth. He is not able to provide any meaningful history; however, he did not exhibit any signs of trauma. His medication bottles were filled yesterday indicated that he had 30 risperidone 1 mg tablet filled as well as sixty 500 mg delayed release Depakote tablets filled yesterday and both bottles were empty. He was evaluated in the Emergency Room extensively and Poison Control Center was contacted. His lab work was mostly unremarkable; however, toxic screen showed that his valproic acid level was 511 on arrival at around 7:30 this morning and trending down to about 450 around 12:00. He was positive also for amphetamine, methamphetamine and according to ____, the ER physician, the Poison Control Center did not recommend any activated charcoal or GI washout with GoLYTELY. By the time I saw him in the ICU, he opened his eyes and managed to drink with a straw. He said few words, but does not remember exactly what happened last night. PAST MEDICAL HISTORY: Significant for Chiari malformation. PAST SURGICAL HISTORY: Significant for right middle, ring and little finger surgery. ALLERGIES: Allergic to EMMA, MEAT and DYE. PHYSICAL EXAMINATION: GENERAL: On arrival to the Emergency Room, he was extremely sedated, but arousable; however, there was no pallor, jaundice, cyanosis or thyromegaly. No jugular venous distention. No limb edema. VITAL SIGNS: His heart rate was 96, blood pressure was 134/56, temperature was 98.5, respiratory rate was 16, and oxygen saturation was 99% on room air. HEAD, EYES, EARS, NOSE AND THROAT: Showed normocephalic, atraumatic. NECK: Supple. HEART: Showed normal first and second heart sounds. No gallop or murmur. CHEST: Shows central trachea, equal chest expansion. No crepitation or rhonchi. ABDOMEN: Distended, soft, nontender. NEUROLOGIC: He was lethargic, but arousable. He opens his eyes, tracks and mumbles some words. Managed to ask or state that he is thirsty and wanted water. He managed to drink with a straw. All his cranial nerves are intact. He moves extremities spontaneously without difficulty. LABORATORY DATA: On arrival showed a white cell count 3500, hemoglobin 16, hematocrit 45, MCV 90, and platelet count of 138,000 with a manual differential showed 35% polymorphs, 57% lymphocytes. His chemistry showed a serum sodium 144, potassium 3.9, chloride 106, bicarbonate 25, anion gap of 13, BUN 11, creatinine 1.2, estimated GFR was 76 mL per minute, his glucose 124. Lactic acid on arrival was 2.8, calcium was 8.5, magnesium 2. Total bilirubin, AST, ALT, alkaline phosphatase were normal. His ammonia was 33. Total protein was 7.3, albumin ____. His urinalysis showed the urine was yellow, clear with pH pf 6.5, specific gravity 1.020. The urine was negative for protein, glucose, ketones, blood, nitrites, leukocyte esterase. Positive for rare rbc's, occasional wbc's, and no bacteria. He apparently had his chest x-ray ____ limits for size, unremarkable central vascular structures. No pneumothorax, lobar infiltrate or pleural effusion. Free air seen under diaphragm. There is no CT scan actually done. ASSESSMENT AND PLAN: In summary, this is a 23-year-old male patient who was admitted with a suicidal attempt with an overdose of thirty 1 mg risperidone tablets and sixty 500 mg delayed release Depakote. As the patient remained hemodynamically stable, the Poison Control Center recommended that there is no other intervention is recommended other than supportive care and monitoring including ____ was indicated. The patient was admitted to ICU. We will monitor his Depakote level as well as ammonia and consult the psychiatrist as he obviously will require inpatient psychiatric stabilization. WANG ROB MD DR: MARILYN/henry JOB#: [id number] / [id number]
[2018-12-05 23:42] LABS: VAL ACID 149 mcg/mL (50-100)
[2018-12-06] VITALS (13 sets, daily range): BP systolic 102–151; BP diastolic 46–69
[2018-12-06] MEDS: IV NORMAL SALINE 1,000ML 1,000 ML IV SCH (00:15)
[2018-12-06 06:16] LABS: HEMATOCRIT 38.6 % (39.0-53.0); HEMOGLOBIN 13.3 g/dL (13.0-17.5); RED BLOOD COUNT 4.25 x10^6/uL (4.30-5.70); RED CELL DISTRIBUTION WIDTH 12.6 % (11.5-14.5); WHITE BLOOD COUNT 5.2 x10^3/uL (4.0-11.0)
[2018-12-06 06:33] LABS: ALBUMIN 2.8 g/dL (3.4-5.0); ALBUMIN/GLOBULIN RATIO 1.1 (1.0-1.7); CALCIUM 7.6 mg/dL (8.5-10.1); CREATININE 0.9 mg/dL (0.7-1.3); GFR 106.5; POTASSIUM 3.4 mmol/L (3.5-5.1); TOTAL BILIRUBIN 0.6 mg/dL (0.2-1.0); TOTAL PROTEIN 5.4 g/dL (6.4-8.2)
[2018-12-06 06:39] LABS: VAL ACID 88 mcg/mL (50-100)
[2018-12-06] MEDS ORDERED: POTASSIUM CHLORIDE 20 MEQ TABLET.ER. PO ONE (07:30)
[2018-12-06] MEDS: LACTULOSE 20 GM/30 ML SOLUTION. PO SCH ×2 (09:00→20:28)
[2018-12-06] MEDS ORDERED: FLU VAX QS 2019-20 (36MOS+)/PF 0.5 ML SYRINGE. VAX IM ONE (09:00)
[2018-12-06] MEDS: NICOTINE 14MG PATCH. TD SCH (16:59)
--- NOTE | 2018-12-07 01:58 | PN ---
DATE: 12/06/2018 SUBJECTIVE: The patient is resting slightly propped up in bed, in no apparent distress, awake, and alert. Denied any complaint. His lab work has normalized. His valproic acid is down to 88. His chemistry has normalized. His CK was only 95 and his ammonia is down to 30. He was evaluated by the [facility] and he is now in involuntary hold for him to be admitted to [place] given that he overdosed and attempted suicide. PHYSICAL EXAMINATION: GENERAL: When I examined him this afternoon, he looked well and was clearly in no apparent respiratory distress. No pallor, jaundice, cyanosis or thyromegaly. No jugular venous distension. No lower limb edema. VITAL SIGNS: His heart rate was 80, blood pressure 119/54, temperature was 98.2, respiratory rate was 14 and oxygen saturation was 99%. HEAD, EYES, EARS, NOSE AND THROAT: Showed normocephalic, atraumatic. NECK: Supple. HEART: Showed normal first and second heart sounds. No gallop or murmur. CHEST: Clear to auscultation. No crepitation or rhonchi. ABDOMEN: Scaphoid, soft, nontender. NEUROLOGIC: He is awake, alert, responding appropriately. All cranial nerves are intact. He moves extremities without difficulty, ambulates without assistance or assistive devices. His intake was 5829, output was 4475. LABORATORY DATA: His lab work this morning showed serum sodium 141, potassium 3.4, chloride 107, bicarbonate 24, anion gap of 10, BUN 9, creatinine 0.9, estimated GFR was 160 mL per minute. His glucose was 88, calcium was 7.6. Total bilirubin, AST, ALT, alkaline phosphatase were normal. Total protein was 5.4, albumin 2.8. His white cell count was 5200, hemoglobin 13, hematocrit 38, MCV 91, and platelet count 259,000. As of this morning, his valproic acid was 88 mcg/L. ASSESSMENT: Suicidal attempt with an overdose with 30 1 mg risperidone tablet and 6500 delayed release Depakote. The patient is on involuntary hold by court order for him to be admitted for inpatient psychiatric treatment at [place]. WANG ROB MD DR: MARILYN/henry JOB#: [id number] / [id number]
[2018-12-07 06:15] VITALS: BP 145/65
[2018-12-07 06:27] LABS: CALCIUM 9.1 mg/dL (8.5-10.1); GFR 94.3
[2018-12-07] MEDS: LACTULOSE 20 GM/30 ML SOLUTION. PO SCH ×2 (08:02→20:35)
[2018-12-07] MEDS: NICOTINE 14MG PATCH. TD SCH (08:03)
[2018-12-07 10:36] VITALS: BP 151/64
[2018-12-07] MEDS ORDERED: IBUPROFEN 600 MG TABLET. PO PRN (15:15)
[2018-12-07 15:43] VITALS: BP 140/65
[2018-12-07 19:31] VITALS: BP 130/72
--- NOTE | 2018-12-08 00:39 | PN ---
DATE: 12/07/2018 SUBJECTIVE: The patient is resting comfortably in bed, in no apparent distress. He did complain of headache, but denied any other complaint. The nursing staff did not voice any concerns that he had an uneventful night. He continues to be on involuntary hold as he had been made a serious suicide attempt with overdosing large amount of Depakote and 30 risperidone 1 mg tablet. He was evaluated by the [facility]. He is now in involuntary hold. OBJECTIVE: GENERAL: On examining him today, he looked well and was clearly in no apparent respiratory distress. No pallor, jaundice, cyanosis or thyromegaly. No jugular venous distention. No lower limb edema. VITAL SIGNS: His heart rate was 65, blood pressure 151/64, temperature was 98.2, respiratory rate was 18 and his oxygen saturation was 99%. HEAD, EYES, EARS, NOSE AND THROAT: Showed normocephalic, atraumatic. NECK: Supple. HEART: Showed normal first and second heart sounds. No gallop or murmur. CHEST: Clear to auscultation. No crepitation or rhonchi. ABDOMEN: Distended, soft, nontender. NEUROLOGIC: He was awake, alert, responding appropriately. All cranial nerves intact. He moves all extremities without difficulty, ambulates without assistance or assistive device. LABORATORY DATA: Her lab work this morning showed a serum sodium 140, potassium 4, chloride 103, bicarbonate 28, anion gap of 9, BUN 11, creatinine 1, estimated GFR was 94 mL per minute. His glucose was 96 and calcium was 9.1. His white cell count was 5200, hemoglobin 13, hematocrit 38, MCV 91 and platelet count of 159,000. Urinalysis unremarkable. Toxic screen as of yesterday showed his valproic acid level came down from 511 down to 88. ASSESSMENT: Suicidal attempt with an overdose of thirty 1 mg risperidone as well as sixty 500 mg delayed release Depakote tablet. He continues to be on involuntary hold by court order for him to be admitted for inpatient psychiatric hospitalization. WANG ROB MD DR: MARILYN/henry JOB#: [id number] / [id number]
[2018-12-08] MEDS: LACTULOSE 20 GM/30 ML SOLUTION. PO SCH (09:00)
[2018-12-08] MEDS: NICOTINE 14MG PATCH. TD SCH (09:50)
[2018-12-08 09:59] VITALS: BP 122/68
--- NOTE | 2018-12-09 09:00 | EKG ---
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
--- NOTE | 2018-12-19 12:38 | EKG ---
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
--- NOTE | 2018-12-19 12:40 | EKG ---
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
--- NOTE | 2019-01-19 12:03 | DS ---
DATE OF DISCHARGE: 12/08/2018 HOSPITAL COURSE: The patient is a 23-year-old male patient who was admitted through the Emergency Room for evaluation of lethargy and altered mental status and suicidal attempt. He apparently was seen in the Emergency Room several times and he was hospitalized about a week prior to that with sedation, possibly related to polysubstance abuse and overdose. In the morning of admission, the patient was brought to the Emergency Room by his girlfriend who appears much older than him. She brought his empty medication bottles for risperidone and Depakote, both of which were filled the day before admission according to the dates on the bottle along with that what appears to be a suicidal note. When he arrived to the Emergency Room, he was not verbally responsive, but exhibiting some purposeful movement. He protects his airways. He does have good gag reflex. He does assist in opening his mouth. He is not able to provide any meaningful history; however, he did not exhibit any signs of trauma. We did basically contact the Poison Control Center and he apparently was admitted with suicidal attempt with an overdose of 30, 1 mg risperidone as well as 60, 500 mg delayed release Depakote. The Poison Control Center did not recommend any further intervention other than supportive care and monitoring including monitoring his ammonia and his electrolyte. We did actually consult the psychiatrist as he obviously will require inpatient psychiatric stabilization. He did eventually become more awake, alert, responding appropriately, was able to eat and drink, although he continued to be weak and on the day of discharge he continued to be on involuntary hold by court order for him to be admitted for inpatient psychiatric hospitalization and in fact he was transferred to [place] on 12/08/2018 via EMS accompanied by ____. FINAL DISCHARGE DIAGNOSES: Suicidal attempt by overdosing on risperidone and Depakote. Other medical problems include Chiari malformation and schizoaffective disorder and polysubstance abuse. WANG ROB MD DR: MARILYN/henry JOB#: [id number] / [id number]
== END 2018-12-08 11:20 | DRG 918 ==
LOC: ER 07:10 → EEVIPCON 08:45 → ICU 08:45
PROVIDERS: ADMIT Internal Medicine; ATTEND Internal Medicine
DX: T43.592A Poisoning by other antipsychotics and neuroleptics, intentional self-harm, initial encounter (principal); F31.9 Bipolar disorder, unspecified; F20.9 Schizophrenia, unspecified; F41.9 Anxiety disorder, unspecified; F43.10 Post-traumatic stress disorder, unspecified; Z88.8 Allergy status to other drugs, medicaments and biological substances; Y92.89 Other specified places as the place of occurrence of the external cause; Z87.891 Personal history of nicotine dependence; Z91.5 Personal history of self-harm
CPT/HCPCS: 36415; 51702; 80048; 80053; 80164; 80307; 80329; 81001; 82140; 82550; 83605; 83735; 85025; 85027; 90471; 90686; 93005; 96361; 96374; G0480; J2310; 82003; 99291-25; J7030